=== PATIENT | female | born 1990 | race African-American/Black ===

== ENCOUNTER 2021-11-27 05:04 | Observation (INO) | payer OTHER, MEDICAID ==
[~2021-11-27] VITALS: Ht 162.6 cm; Wt 93.0 kg
== END 2021-11-27 07:40 | disposition home or self-care (01) ==
LOC: EDBD 05:04 → 8 EST LDRP 05:04
PROVIDERS: ADMIT Specialist; ATTEND Specialist
DX: O62.9 Abnormality of forces of labor, unspecified (principal); O99.891 Other specified diseases and conditions complicating pregnancy; M54.6 Pain in thoracic spine; Z3A.39 39 weeks gestation of pregnancy
CPT/HCPCS: 59025; 76815; 76818; G0378; 99281